=== PATIENT | female | born 1960 | race Caucasian/White ===

== ENCOUNTER → 2016-10-18 | Outpatient (CLI) | payer OTHER ==
--- NOTE | 2016-10-18 17:27 | MA ---
Digital Screening Mammogram History: Bilateral breast implants. Screening mammogram. Breast parenchymal density: Type II pattern. Technique: Four views of each breast are obtained including CC and oblique lateral Kwaku (implant di splaced) and non-Kwaku (implant not displaced) views. CAD is utilized using the iCAD product. Comparison: September 02, 2015; September 01, 2014; June 17, 2013. Findings: Bilateral breast implants are in place. There are no new masses, abnormal clusters of micro calcifications, or lymphadenopathy. Impression: Negative mammogram. BI-RADS 1. Routine screening is recommended in one year. [facility] will send a result letter to the patient. Negative mammography should not preclude additional workup of a clinically suspicious finding. The patient's information is entered into a reminder system with a target due date for her next mammo gram.
== END ==
LOC: FIMAGING 13:27
DX: Z12.31 Encounter for screening mammogram for malignant neoplasm of breast (principal)
CPT/HCPCS: G0202

== ENCOUNTER → 2017-12-16 | Outpatient (CLI) | payer OTHER | LOC: FIMAGING 14:42 | PROVIDERS: ATTEND Internal Medicine | DX: Z12.31 Encounter for screening mammogram for malignant neoplasm of breast (principal); Z80.3 Family history of malignant neoplasm of breast ==

== ENCOUNTER → 2019-01-04 | Outpatient (CLI) | payer OTHER | LOC: FIMAGING 15:51 | PROVIDERS: ATTEND Internal Medicine | DX: Z12.31 Encounter for screening mammogram for malignant neoplasm of breast (principal); Z80.3 Family history of malignant neoplasm of breast ==